=== PATIENT | female | born 1960 | race American Indian/Alaskan Native ===

== ENCOUNTER 2016-11-24 09:54 | Outpatient (CLI) | payer MEDICARE ==
--- NOTE | 2016-11-24 11:13 | Mammography Report ---
Bilateral mammogram: Compared to 11/18/15. CAD study utilized. Findings: Predominance of adipose tissue bilaterally. Focal architectural distortion in the right breast and mid left breast. No microcalcification. Benign axilla. Impression: Focal architectural distortion right and left breast. Recommend spot magnification views and, if necessary, wilian syntheses for further evaluation. BI-RADS CATEGORY: 0 = Needs additional imaging evaluation ACR BI-RADS MAMMOGRAPHIC CODES: 0 = Needs additional imaging evaluation; 1 = Negative; 2 = Benign; 3 = Probably benign; 4 = Suspicious; 5 = Malignant; 6 = Known biopsy-proven malignancy COMMENT: 1. Dense breast tissue, i.e., adenosis, fibrocystic changes, etc., may obscure an underlying neoplasm. 2. Approximately 10% of cancers are not detected with mammography. 3. A negative mammography report should not delay biopsy if a clinically suspicious mass is present. COMMENT: Patient follow-up letters are generated in [employer].
== END 2016-11-24 09:55 | disposition home or self-care (01) ==
LOC: MAMMO 09:54
PROVIDERS: ATTEND Internal Medicine Hematology & Oncology
DX: Z12.31 Encounter for screening mammogram for malignant neoplasm of breast (principal)
CPT/HCPCS: 77067; G0202

== ENCOUNTER 2017-03-02 09:29 | Outpatient (CLI) | payer MEDICARE ==
--- NOTE | 2017-03-02 11:47 | Mammography Report ---
Bilateral diagnostic mammogram and bilateral whole breast ultrasound including all 4 quadrants and subareolar regions. History: Recall for subtle areas of possible architectural distortion. Findings: Spot compression images in the area of interest demonstrate no evidence of architectural distortion or mass in the areas of interest, seen on the screening cc projections. Spot magnification images were used today. Additionally, the 90 degree lateral views demonstrate no focal abnormalities. Bilateral whole breast ultrasound demonstrated no suspicious lesions. Incidental note is made of a tiny intramammary node in the left breast at 3:00, 5 cm from nipple. This measures 4 mm in diameter. Impression: No suspicious findings. BI-RADS code: 2. Recommendation: Annual screening.
== END 2017-03-02 09:30 | disposition home or self-care (01) ==
LOC: MAMMO 09:29
PROVIDERS: ATTEND Internal Medicine Hematology & Oncology
DX: R92.8 Other abnormal and inconclusive findings on diagnostic imaging of breast (principal)
CPT/HCPCS: 76641; G0204; 77066